=== PATIENT | female | born 1990 | race Caucasian/White ===

== ENCOUNTER 2017-01-29 08:11 | Emergency (ER) | payer SELFPAY ==
[2017-01-29 08:22] VITALS: BP 148/78
--- NOTE | 2017-01-29 08:28 | UC ---
Throat Pain/Nasal Chema HPI - HPI Summary HPI Summary: x2 days pt has had fever, chills, R ear pain. states her R ear is now completely plugged. Runny nose and minor sore throat. She is here with her kids and foster kids. Temp at home max 103 - temporal scanner. no cough, no wheezing. Denies , LMP 2 wks ago. Of note, [place] and sx started right after the field was cut. - History of Current Complaint Chief Complaint: UCGeneralIllness Stated Complaint: THROAT,EARS,FEVER Time Seen by Provider: 01/29/17 08:18 Hx Last Menstrual Period: 2 weeks ago - Allergies/Home Medications Allergies/Adverse Reactions: Allergies Allergy/AdvReac Type Severity Reaction Status Date / Time No Known Allergies Allergy Verified 01/29/17 08:22 PMH/Surg Hx/FS Hx/Imm Hx Previously Healthy: Yes - Surgical History Surgical History: Yes Surgery Procedure, Year, and Place: R ankle surgery, D&C - Family History Known Family History: Negative: Cardiac Disease, Diabetes - Social History Alcohol Use: None Substance Use Type: None Smoking Status (MU): Never Smoked Tobacco - Immunization History Most Recent Influenza Vaccination: has not had Review of Systems Constitutional: Fever - took ibuprofen 3 hrs ago Skin: Negative Eyes: Negative ENT: Sore Throat, Ear Ache, Nasal Discharge Respiratory: Negative Cardiovascular: Negative Gastrointestinal: Negative Genitourinary: Negative Motor: Negative Neurovascular: Negative Musculoskeletal: Negative Neurological: Negative Psychological: Negative All Other Systems Reviewed And Are Negative: Yes Physical Exam Triage Information Reviewed: Yes Appearance: Well-Appearing, No Pain Distress, Well-Nourished Vital Signs: Initial Vital Signs Temp 97.2 F 01/29/17 08:15 Pulse 95 01/29/17 08:15 Resp 18 01/29/17 08:15 BP 148/78 01/29/17 08:15 Pulse Ox 98 01/29/17 08:15 Vital Signs Reviewed: Yes Eye Exam: Normal ENT: Positive: Pharyngeal erythema - +PND, no exudate, Nasal drainage, TM bulging - Right, left TM is nml. Rt external ear is not tender with manipulation., TM dull, TM red Neck exam: Normal Neck: Positive: Supple, Nontender, No Lymphadenopathy Respiratory Exam: Normal Respiratory: Positive: Lungs clear, Normal breath sounds, No respiratory distress, No accessory muscle use Cardiovascular Exam: Normal Cardiovascular: Positive: RRR, No Murmur, Pulses Normal, Brisk Capillary Refill Abdominal Exam: Normal Abdomen Description: Positive: Nontender, Soft Musculoskeletal Exam: Normal Neurological Exam: Normal Psychological Exam: Normal Skin Exam: Normal Throat Pain/Nasal Course/Dx - Differential Dx/Diagnosis Differential Diagnosis/HQI/PQRI: Otitis Media, Pharyngitis, Sinusitis, URI Provider Diagnoses: Rt AOM, sinusitis Discharge - Discharge Plan Condition: Stable Disposition: HOME Prescriptions: Amoxicillin (*) [Amoxicillin 875 MG (*)] 875 mg PO BID #20 tab Fluticasone NASAL SPRAY 50MCG* [Flonase NASAL SPRAY 50MCG*] 2 spray BOTH NARES DAILY #1 btl Patient Education Materials: Sinusitis (ED), Otitis Media (ED) Referrals: LOKI Erickson [Medical Doctor] - Additional Instructions: Make sure to take a probiotic daily while on the antibiotic. Follow up with your PCP in 3-4 days. Fluids and rest. Can continue with ibuprofen and tylenol. Taking an otc allergy pill like cetirizine 10mgs each day can be helpful as well.
== END 2017-01-29 08:45 | disposition home or self-care (01) ==
LOC: UCCORT 08:11
DX: H66.91 Otitis media, unspecified, right ear (principal); J32.9 Chronic sinusitis, unspecified
CPT/HCPCS: 99201; G0463

== ENCOUNTER 2017-06-17 19:04 | Emergency (ER) | payer BC, MEDICAID ==
[2017-06-17 20:40] LABS: Hematocrit 35 % (35-47); Hemoglobin 11.9 g/dl (12.0-16.0); Mean Corpuscular HGB Conc 34 g/dl (31-36); Mean Corpuscular Hemoglobin 26 pg (27-31); Mean Corpuscular Volume 77 fL (80-97); Mean Platelet Volume 7 um3 (7.4-10.4); Red Blood Count 4.58 10^6/ul (4.0-5.4); Red Cell Distribution Width 15 % (10.5-15); White Blood Count 9.6 10^3/ul (3.5-10.8)
[2017-06-17 20:54] LABS: BUN/Creatinine Ratio 19.8 (8-20); Calcium 8.8 mg/dL (8.6-10.3); EGFR African American 101.8 (>60); EGFR Non-African American 79.2 (>60); Globulin 3.4 g/dL (2-4); Potassium 3.8 mmol/L (3.5-5.0); Total Bilirubin 0.2 mg/dL (0.2-1.0); Total Protein 7.4 g/dL (6.4-8.9)
[2017-06-17] MEDS ORDERED: Ketorolac INJ* 30 MG/ML 1 ML VIAL IV PUSH ONE (21:11)
[2017-06-17] MEDS ORDERED: Clindamycin 900 MG IVPREMIX(* 900 MG/50 ML SDV IV ONE (21:11)
--- NOTE | 2017-06-17 21:40 | ED ---
Throat Pain/Nasal Congestion - HPI Summary HPI Summary: 27F presents with right sided facial swelling for two weeks. She states she fractured tooth 21 a couple months ago. Two weeks ago she seemed to have an infection of that tooth. was placd on two rounds of clindamycin without relief. was told that needs to have tooth pulled but can not have pulled into until infection gone. [facility] sent in for IV antibiotics and steroid. she saw the oral surgeon today who said she has to much swelling to drain it today so needs to get swelling down. denies any fever. denies any chest pain or SOB. no trismus or hot potato voice. has been taking ibuprofen for pain with occasional percocet for pain. Has follow up with oral surgeon on Tuesday. <Divya Thacker - Last Filed: 06/17/17 23:49> <Shandra Munoz - Last Filed: 06/19/17 16:44> - History of Current Complaint Chief Complaint: EDDentalPain Time Seen by Provider: 06/17/17 20:12 - Allergies/Home Medications Allergies/Adverse Reactions: Allergies Allergy/AdvReac Type Severity Reaction Status Date / Time Schneider Allergy Severe Rash Verified 06/17/17 19:11 Methylphenidate Allergy Severe Shakes Verified 06/17/17 19:11 [From Ritalin] PMH/Surg Hx/FS Hx/Imm Hx Endocrine/Hematology History: Denies: Hx Anticoagulant Therapy Cardiovascular History: Denies: Hx Hypertension - Surgical History Surgery Procedure, Year, and Place: R ankle surgery, D&C - Immunization History Date of Tetanus Vaccine: UTD Infectious Disease History: No Infectious Disease History: Denies: Traveled Outside the [place] in Last 30 Days - Family History Known Family History: Negative: Cardiac Disease, Diabetes - Social History Alcohol Use: None Substance Use Type: Reports: None Smoking Status (MU): Never Smoked Tobacco <Divya Thacker - Last Filed: 06/17/17 23:49> Review of Systems Negative: Fever Positive: Dental Pain, Other - swelling left side of face Negative: Chest Pain Negative: Shortness Of Breath All Other Systems Reviewed And Are Negative: Yes <Divya Thacker - Last Filed: 06/17/17 23:49> Physical Exam Triage Information Reviewed: Yes Vital Signs On Initial Exam: Initial Vitals Temp Pulse Resp BP Pulse Ox 97.7 F 107 16 143/103 99 10/06/17 19:07 06/17/17 19:07 06/17/17 19:07 06/17/17 19:07 06/17/17 19:07 Vital Signs Reviewed: Yes Appearance: Positive: Well-Appearing Skin: Positive: Warm, Dry Head/Face: Positive: Normal Head/Face Inspection, Other - swelling right side of face Eyes: Positive: Normal, EOMI, PAUL, Conjunctiva Clear ENT: Positive: Pharynx normal, TMs normal - Елена Coma Scale Coma Scale Total: 15 <Divya Thacker - Last Filed: 06/17/17 23:49> Vital Signs On Initial Exam: Initial Vitals Temp Pulse Resp BP Pulse Ox 97.7 F 107 16 143/103 99 06/17/17 19:07 06/17/17 19:07 06/17/17 19:07 06/17/17 19:07 06/17/17 19:07 <Shandra Munoz - Last Filed: 06/19/17 16:44> Diagnostics - Vital Signs Vital Signs Temp Pulse Resp BP Pulse Ox 06/17/17 19:07 97.7 F 107 16 143/103 99 - Laboratory Lab Results: Lab Results 06/17/17 06/17/17 06/17/17 Range/Units 20:28 20:28 20:28 WBC 9.6 (3.5-10.8) 10^3/ul RBC 4.58 (4.0-5.4) 10^6/ul Hgb 11.9 L (12.0-16.0) g/dl Hct 35 (35-47) % MCV 77 L (80-97) fL MCH 26 L (27-31) pg MCHC 34 (31-36) g/dl RDW 15 (10.5-15) % Plt Count 328 (150-450) 10^3/ul MPV 7 L (7.4-10.4) um3 Neut % (Auto) 71.5 (38-83) % Lymph % (Auto) 19.9 L (25-47) % Mckean % (Auto) 6.9 (1-9) % Eos % (Auto) 1.4 (0-6) % Baso % (Auto) 0.3 (0-2) % Absolute Neuts (auto) 6.8 (1.5-7.7) 10^3/ul Absolute Lymphs (auto) 1.9 (1.0-4.8) 10^3/ul Absolute Monos (auto) 0.7 (0-0.8) 10^3/ul Absolute Eos (auto) 0.1 (0-0.6) 10^3/ul Absolute Basos (auto) 0 (0-0.2) 10^3/ul Absolute Nucleated RBC 0 10^3/ul Nucleated RBC % 0 Sodium 137 (133-145) mmol/L Potassium 3.8 (3.5-5.0) mmol/L Chloride 104 (101-111) mmol/L Carbon Dioxide 29 (22-32) mmol/L Anion Gap 4 (2-11) mmol/L BUN 17 (6-24) mg/dL Creatinine 0.86 (0.51-0.95) mg/dL Est GFR ( Amer) 101.8 (>60) Est GFR (Non-Af Amer) 79.2 (>60) BUN/Creatinine Ratio 19.8 (8-20) Glucose 124 H (70-100) mg/dL Lactic Acid 1.1 (0.5-2.0) mmol/L Calcium 8.8 (8.6-10.3) mg/dL Total Bilirubin 0.20 (0.2-1.0) mg/dL AST 17 (13-39) U/L ALT 16 (7-52) U/L Alkaline Phosphatase 90 (34-104) U/L Total Protein 7.4 (6.4-8.9) g/dL Albumin 4.0 (3.2-5.2) g/dL Globulin 3.4 (2-4) g/dL Albumin/Globulin Ratio 1.2 (1-3) Result Diagrams: 06/17/17 20:28 06/17/17 20:28 Lab Statement: Any lab studies that have been ordered have been reviewed, and results considered in the medical decision making process. - CT neck CT Interpretation: Positive (See Comments) - periapical luceny around left fourth mandibular tooth from midline. anterior mandibular cortex adjacent to this tooth is breached and adjacent soft tisseu swelling. this is likely a phlegmon which has not yet developed into abscess. phelgmon resctricted to left perimandibular soft tissue and remainder of soft tissues of face and neck ar normal. CT Interpretation Completed By: Radiologist <Divya Thacker - Last Filed: 06/17/17 23:49> - Vital Signs Vital Signs Temp Pulse Resp BP Pulse Ox 06/17/17 23:59 98.9 F 99 20 140/90 98 06/17/17 19:07 97.7 F 107 16 143/103 99 - Laboratory Lab Results: Lab Results 06/17/17 06/17/17 06/17/17 Range/Units 20:28 20:28 20:28 WBC 9.6 (3.5-10.8) 10^3/ul RBC 4.58 (4.0-5.4) 10^6/ul Hgb 11.9 L (12.0-16.0) g/dl Hct 35 (35-47) % MCV 77 L (80-97) fL MCH 26 L (27-31) pg MCHC 34 (31-36) g/dl RDW 15 (10.5-15) % Plt Count 328 (150-450) 10^3/ul MPV 7 L (7.4-10.4) um3 Neut % (Auto) 71.5 (38-83) % Lymph % (Auto) 19.9 L (25-47) % Mckean % (Auto) 6.9 (1-9) % Eos % (Auto) 1.4 (0-6) % Baso % (Auto) 0.3 (0-2) % Absolute Neuts (auto) 6.8 (1.5-7.7) 10^3/ul Absolute Lymphs (auto) 1.9 (1.0-4.8) 10^3/ul Absolute Monos (auto) 0.7 (0-0.8) 10^3/ul Absolute Eos (auto) 0.1 (0-0.6) 10^3/ul Absolute Basos (auto) 0 (0-0.2) 10^3/ul Absolute Nucleated RBC 0 10^3/ul Nucleated RBC % 0 Sodium 137 (133-145) mmol/L Potassium 3.8 (3.5-5.0) mmol/L Chloride 104 (101-111) mmol/L Carbon Dioxide 29 (22-32) mmol/L Anion Gap 4 (2-11) mmol/L BUN 17 (6-24) mg/dL Creatinine 0.86 (0.51-0.95) mg/dL Est GFR ( Amer) 101.8 (>60) Est GFR (Non-Af Amer) 79.2 (>60) BUN/Creatinine Ratio 19.8 (8-20) Glucose 124 H (70-100) mg/dL Lactic Acid 1.1 (0.5-2.0) mmol/L Calcium 8.8 (8.6-10.3) mg/dL Total Bilirubin 0.20 (0.2-1.0) mg/dL AST 17 (13-39) U/L ALT 16 (7-52) U/L Alkaline Phosphatase 90 (34-104) U/L Total Protein 7.4 (6.4-8.9) g/dL Albumin 4.0 (3.2-5.2) g/dL Globulin 3.4 (2-4) g/dL Albumin/Globulin Ratio 1.2 (1-3) Result Diagrams: 06/17/17 20:28 06/17/17 20:28 Lab Statement: Any lab studies that have been ordered have been reviewed, and results considered in the medical decision making process. <Shandra Munoz - Last Filed: 06/19/17 16:44> EENT Course/Dx - Course Course Of Treatment: 27F presents with right sided facial swelling for two weeks. She states she fractured tooth 21 a couple months ago. Two weeks ago she seemed to have an infection of that tooth. was placd on two rounds of clindamycin without relief. was told that needs to have tooth pulled but can not have pulled into until infection gone. [facility] sent in for IV antibiotics and steroid. she saw the oral surgeon today who said she has to much swelling to drain it today so needs to get swelling down. denies any fever. denies any chest pain or SOB. patient came with note from [facility] requesting iv antibiotics with potential steriod. on exam no trismus or hot potato voice. has tenderness tooth 21. hard loculated area on left side of face without flautance. labs normal. CT shows periapical abscess but soft tissue swelling does not appear to be infectious at this point. gave dose of clindamycin and patient states swelling in face as done down. discussed results with patient will add on steriod for swelling and add PCN for more coverage. patient has appropiate follow up at this time and nothing to be drainage at this time so hopefully additional antibiotic and steriod will decrease swelling so that way that tooth can be removed. told of signs to return to ED for. patient understands and agrees with plan. - Differential Diagnoses Differential Diagnoses: Dental Abscess, Fractured Tooth, Carmine's Angina <Divya Thacker - Last Filed: 06/17/17 23:49> <Shandra Munoz - Last Filed: 06/19/17 16:44> - Diagnoses Provider Diagnoses: Dental abscess Discharge <Divya Thacker - Last Filed: 06/17/17 23:49> <Shandra Munoz - Last Filed: 06/19/17 16:44> - Discharge Plan Condition: Good Disposition: HOME Prescriptions: Dexamethasone TAB* [Decadron TAB*] 4 mg PO DAILY #4 tab Ibuprofen TAB* [Motrin TAB* 800 MG] 800 mg PO Q6H #20 tab Penicillin VK TAB* [Penicillin VK 250 mg Tab*] 500 mg PO QID #27 tab Patient Education Materials: Dental Abscess (ED) Referrals: LOKI Erickson [Primary Care Provider] - Additional Instructions: Continue clindamycin Add on PCN four times a day for 7 days Take steroid once a day for 5 days Follow up with oral surgery as scheduled Return to ED if unable to manage secretions, unable to open jaw, or any new or worsening symptoms Attestation Statement User Type: Provider - I was available for consult. This patient was seen by the YAQUELIN. The patient was not presented to, seen by, or examined by me. -Janelle <Shandra Munoz - Last Filed: 06/19/17 16:44>
[2017-06-17] MEDS ORDERED: Iohexol 300* (CONTRAST) 10 ML SDV IV ONE (21:44)
[2017-06-17] MEDS ORDERED: Penicillin VK TAB* 250 MG PO ONE (23:12)
[2017-06-17] MEDS ORDERED: Dexamethasone TAB* 4 MG PO ONE (23:12)
[2017-06-18 00:01] VITALS: BP 140/90
--- NOTE | 2017-06-18 08:00 | RAD ---
HISTORY: Left-sided facial swelling COMPARISONS: None TECHNIQUE: Multiple contiguous axial CT scans were obtained of the neck after the administration of nonionic intravenous contrast, with coronal and sagittal multiplanar reformations. FINDINGS: BRAIN AND ORBITS: The visualized brain and orbits are normal. PARANASAL SINUSES: There are mucus retention cysts versus polyp with mucosal thickening of the maxillary sinuses bilaterally. SALIVARY GLANDS: The parotid glands, submandibular glands, sublingual glands are normal. NASAL CAVITY/NASOPHARYNX: The nasal cavity and nasopharynx are normal. ORAL CAVITY/OROPHARYNX: Evaluation limited by metallic streak artifact. There is carious disease with periapical is seen along the left lingular bicuspids. There is cortical breakthrough, with inflammatory change in the premandibular subcutaneous soft tissue. There is no appreciable loculated fluid collection. LARYNGEAL APPARATUS/HYPOPHARYNX: The laryngeal apparatus and hypopharynx are normal. UPPER AIRWAY/UPPER ESOPHAGUS: The visualized upper airway and esophagus are normal. LUNG APICES: The lung apices are clear. THYROID GLAND: The thyroid gland is normal. LYMPH NODES: There are prominent but nonpathologically enlarged lymph nodes of the upper cervical chain, greater on the left than on the right VASCULATURE: The vasculature is unremarkable. BONES AND SOFT TISSUES: No bone or soft tissue abnormalities are noted. OTHER: None. IMPRESSION: PERIAPICAL LUCENCY CONSISTENT WITH PERIAPICAL ABSCESS OF THE LEFT MANDIBULAR BICUSPIDS, WITH CORTICAL BREAKTHROUGH AND ASSOCIATED PHLEGMONOUS CHANGE OF THE PREMANDIBULAR SUBCUTANEOUS SOFT TISSUE. THERE IS NO LOCULATED FLUID COLLECTION TO SUGGEST ABSCESS
== END 2017-06-18 00:01 | disposition home or self-care (01) ==
LOC: ED 19:04
DX: K08.89 Other specified disorders of teeth and supporting structures (principal); K04.7 Periapical abscess without sinus
CPT/HCPCS: 36415; 70491; 80053; 83605; 85025; 96365; 96374; 99282; A9270-GY; J1885; J8540; Q9967

== ENCOUNTER → 2017-11-23 12:34 | Emergency (ER) | payer OTHER ==
[~2017-11-23 12:34] MED LIST: Acetaminophen TAB* 325 MG PO ONE; GuaiFENesin DM* 5 ML UDC PO ONE; NS 0.9% 1000 ML* 1,000 ML IV ONE; Oseltamivir CAP* 75 MG CAP PO ONE; Oseltamivir SUSP 75 MG dose* 75 MG/12.5 ML ORAL.SYRIN PO SCH
--- NOTE | 2017-11-23 16:01 | RAD ---
Indication: Shortness of breath, cough, fever. Chest pain. Flu symptoms. Comparison: No relevant prior exams available on the [facility] [place] for comparison. Technique: Upright AP and lateral chest views. Report: Morbid obesity limits image quality. No compelling alveolar consolidation, pleural effusion, or pneumothorax. Accounting for AP technique and suboptimal inspiration the heart appears top normal in size. Unremarkable central pulmonary vasculature and mediastinal contours. No gross abnormality of the osseous structures. IMPRESSION: No compelling evidence for pneumonia. Top normal heart size.
[2017-11-23 16:09] LABS: ABS Basophils 0 10^3/ul (0-0.2); ABS Eosinophils 0 10^3/ul (0-0.6); ABS Lymphocytes 0.6 10^3/ul (1.0-4.8); ABS Monocytes 0.4 10^3/ul (0-0.8); ABS Neutrophils 3.6 10^3/ul (1.5-7.7); ABS Nucleated RBC 0 10^3/ul; Eosinophil % 0.3 % (0-6); Hematocrit 35 % (35-47); Hemoglobin 11.5 g/dl (12.0-16.0); Lymphocyte % 13.1 % (25-47); Mean Corpuscular HGB Conc 33 g/dl (31-36); Mean Corpuscular Hemoglobin 25 pg (27-31); Mean Corpuscular Volume 77 fL (80-97); Mean Platelet Volume 7 um3 (7.4-10.4); Nucleated Red Blood Cells % 0; Platelet Count 247 10^3/ul (150-450); Red Blood Count 4.52 10^6/ul (4.0-5.4); Red Cell Distribution Width 17 % (10.5-15); White Blood Count 4.6 10^3/ul (3.5-10.8)
[2017-11-23 16:32] LABS: EGFR Non-African American 107.4 (>60)
[2017-11-23 17:17] LABS: Urine Appearance Clear; Urine Blood 2+ (Negative); Urine Color Yellow; Urine Ketones Negative (Negative); Urine Protein Negative (Negative); Urine Specific Gravity 1.017 (1.010-1.030); Urine Urobilinogen Negative (Negative)
[2017-11-23 17:34] VITALS: BP 121/84
--- NOTE | 2017-11-25 08:09 | ED ---
Hitesh Chaves Angela, scribed for Mandeep Farias MD on 11/23/17 at 1455 . Respiratory - HPI Summary HPI Summary: This pt is a 27 y/o female [facility]/o cough and SOB. Pt reports that 3 days ago she had a fever of 102F. She states her fever than resolved. She additionally notes chills, body aches, sore throat. She notes she gets SOB when coughing. Pt reports chest pain secondary to cough. Denies any PMHx. - History of Current Complaint Chief Complaint: EDShortnessOfBreath Stated Complaint: FLU LIKE SYMPTOMS Time Seen by Provider: 11/23/17 14:30 Hx Obtained From: Patient Onset/Duration: Lasting Days, Still Present Timing: Constant Current Severity: Mild Pain Intensity: 2 Character: Cough (Productive) Aggravating Factor(s): Nothing Alleviating Factor(s): Nothing Associated Signs and Symptoms: Fever, SOB, Chest Pain with Cough, Chills, Nasal Congestion - Allergy/Home Medications Allergies/Adverse Reactions: Allergies Allergy/AdvReac Type Severity Reaction Status Date / Time MS Sulligent [Sulligent] Allergy Severe Rash Verified 11/23/17 12:42 MS Methylphenidate Allergy Severe Shakes Verified 11/23/17 12:42 [From Ritalin] PMH/Surg Hx/FS Hx/Imm Hx Endocrine/Hematology History: Denies: Hx Anticoagulant Therapy, Hx Diabetes Cardiovascular History: Denies: Hx Hypertension History: Denies: Hx Renal Disease - Surgical History Surgery Procedure, Year, and Place: R ankle surgery, D&C - Immunization History Date of Tetanus Vaccine: UTD Infectious Disease History: No Infectious Disease History: Denies: Traveled Outside the [place] in Last 30 Days - Family History Known Family History: Negative: Cardiac Disease, Diabetes - Social History Alcohol Use: None Substance Use Type: Reports: None Smoking Status (MU): Never Smoked Tobacco Review of Systems Positive: Fever, Chills Positive: Sore Throat Positive: Chest Pain - secondary to cough Positive: Shortness Of Breath, Cough Positive: Myalgia All Other Systems Reviewed And Are Negative: Yes Physical Exam - Summary Physical Exam Summary: VITAL SIGNS: Reviewed. GENERAL: Patient is an obese female who is lying comfortable in the stretcher. Patient is not in any acute respiratory distress. HEAD AND FACE: No signs of trauma. No ecchymosis, hematomas or skull depressions. No sinus tenderness. Positive for runny nose. EYES: PERRLA, EOMI x 2, No injected conjunctiva, no nystagmus. EARS: Hearing grossly intact. Ear canals and tympanic membranes are within normal limits. MOUTH: Oropharynx within normal limits. NECK: Supple, trachea is midline, no adenopathy, no JVD, no carotid bruit, no c- spine tenderness, neck with full ROM. CHEST: Symmetric, no tenderness at palpation LUNGS: Crackles in both bases of the lungs. CVS: Regular rate and rhythm, S1 and S2 present, no murmurs or gallops appreciated. ABDOMEN: Soft, non-tender. No signs of distention. No rebound no guarding, and no masses palpated. Bowel sounds are normal. EXTREMITIES: FROM in all major joints, no edema, no cyanosis or clubbing. NEURO: Alert and oriented x 3. No acute neurological deficits. Speech is normal and follows commands. SKIN: Dry and warm. Pt is febrile. Triage Information Reviewed: Yes Vital Signs On Initial Exam: Initial Vitals Temp Pulse Resp BP Pulse Ox 97.8 F 108 20 161/83 99 11/23/17 12:37 11/23/17 12:37 11/23/17 12:37 11/23/17 12:37 11/23/17 12:37 Vital Signs Reviewed: Yes Diagnostics - Vital Signs Vital Signs Temp Pulse Resp BP Pulse Ox 11/23/17 12:37 97.8 F 108 20 161/83 99 - Laboratory Lab Results: Lab Results 11/23/17 11/23/17 11/23/17 Range/Units 14:55 15:45 15:45 WBC 4.6 (3.5-10.8) 10^3/ul RBC 4.52 (4.0-5.4) 10^6/ul Hgb 11.5 L (12.0-16.0) g/dl Hct 35 (35-47) % MCV 77 L (80-97) fL MCH 25 L (27-31) pg MCHC 33 (31-36) g/dl RDW 17 H (10.5-15) % Plt Count 247 (150-450) 10^3/ul MPV 7 L (7.4-10.4) um3 Neut % (Auto) 76.6 (38-83) % Lymph % (Auto) 13.1 L (25-47) % Webb % (Auto) 9.6 H (0-7) % Eos % (Auto) 0.3 (0-6) % Baso % (Auto) 0.4 (0-2) % Absolute Neuts (auto) 3.6 (1.5-7.7) 10^3/ul Absolute Lymphs (auto) 0.6 L (1.0-4.8) 10^3/ul Absolute Monos (auto) 0.4 (0-0.8) 10^3/ul Absolute Eos (auto) 0 (0-0.6) 10^3/ul Absolute Basos (auto) 0 (0-0.2) 10^3/ul Absolute Nucleated RBC 0 10^3/ul Nucleated RBC % 0 Sodium 135 (133-145) mmol/L Potassium 3.8 (3.5-5.0) mmol/L Chloride 104 (101-111) mmol/L Carbon Dioxide 27 (22-32) mmol/L Anion Gap 4 (2-11) mmol/L BUN 10 (6-24) mg/dL Creatinine 0.66 (0.51-0.95) mg/dL Est GFR ( Amer) 138.2 (>60) Est GFR (Non-Af Amer) 107.4 (>60) BUN/Creatinine Ratio 15.2 (8-20) Glucose 101 H (70-100) mg/dL Calcium 8.9 (8.6-10.3) mg/dL Total Bilirubin 0.20 (0.2-1.0) mg/dL AST 17 (13-39) U/L ALT 13 (7-52) U/L Alkaline Phosphatase 65 (34-104) U/L Troponin I 0.00 (<0.04) ng/mL C-Reactive Protein 49.34 H (< 5.00) mg/L Total Protein 7.0 (6.4-8.9) g/dL Albumin 3.7 (3.2-5.2) g/dL Globulin 3.3 (2-4) g/dL Albumin/Globulin Ratio 1.1 (1-3) Beta HCG, Quant < 0.60 mIU/mL Urine Color Urine Appearance Urine pH (5-9) Ur Specific Gardiner (1.010-1.030) Urine Protein (Negative) Urine Ketones (Negative) Urine Blood (Negative) Urine Nitrate (Negative) Urine Bilirubin (Negative) Urine Urobilinogen (Negative) Ur Leukocyte Esterase (Negative) Urine WBC (Auto) (Absent) Urine RBC (Auto) (Absent) Ur Squamous Epith Cells (Absent) Urine Bacteria (Absent) Hyaline Casts (Absent) Urine Glucose (Negative) Influenza A (Rapid) Negative (Negative) Influenza B (Rapid) Positive A (Negative) 11/23/17 Range/Units 17:00 WBC (3.5-10.8) 10^3/ul RBC (4.0-5.4) 10^6/ul Hgb (12.0-16.0) g/dl Hct (35-47) % MCV (80-97) fL MCH (27-31) pg MCHC (31-36) g/dl RDW (10.5-15) % Plt Count (150-450) 10^3/ul MPV (7.4-10.4) um3 Neut % (Auto) (38-83) % Lymph % (Auto) (25-47) % Webb % (Auto) (0-7) % Eos % (Auto) (0-6) % Baso % (Auto) (0-2) % Absolute Neuts (auto) (1.5-7.7) 10^3/ul Absolute Lymphs (auto) (1.0-4.8) 10^3/ul Absolute Monos (auto) (0-0.8) 10^3/ul Absolute Eos (auto) (0-0.6) 10^3/ul Absolute Basos (auto) (0-0.2) 10^3/ul Absolute Nucleated RBC 10^3/ul Nucleated RBC % Sodium (133-145) mmol/L Potassium (3.5-5.0) mmol/L Chloride (101-111) mmol/L Carbon Dioxide (22-32) mmol/L Anion Gap (2-11) mmol/L BUN (6-24) mg/dL Creatinine (0.51-0.95) mg/dL Est GFR ( Amer) (>60) Est GFR (Non-Af Amer) (>60) BUN/Creatinine Ratio (8-20) Glucose (70-100) mg/dL Calcium (8.6-10.3) mg/dL Total Bilirubin (0.2-1.0) mg/dL AST (13-39) U/L ALT (7-52) U/L Alkaline Phosphatase (34-104) U/L Troponin I (<0.04) ng/mL C-Reactive Protein (< 5.00) mg/L Total Protein (6.4-8.9) g/dL Albumin (3.2-5.2) g/dL Globulin (2-4) g/dL Albumin/Globulin Ratio (1-3) Beta HCG, Quant mIU/mL Urine Color Yellow Urine Appearance Clear Urine pH 6.0 (5-9) Ur Specific Gardiner 1.017 (1.010-1.030) Urine Protein Negative (Negative) Urine Ketones Negative (Negative) Urine Blood 2+ A (Negative) Urine Nitrate Negative (Negative) Urine Bilirubin Negative (Negative) Urine Urobilinogen Negative (Negative) Ur Leukocyte Esterase Negative (Negative) Urine WBC (Auto) Trace(0-5/hpf) (Absent) Urine RBC (Auto) Trace(0-2/hpf) (Absent) Ur Squamous Epith Cells Present A (Absent) Urine Bacteria Absent (Absent) Hyaline Casts Present A (Absent) Urine Glucose Negative (Negative) Influenza A (Rapid) (Negative) Influenza B (Rapid) (Negative) Result Diagrams: 11/23/17 15:45 11/23/17 15:45 Lab Statement: Any lab studies that have been ordered have been reviewed, and results considered in the medical decision making process. - Radiology Chest XR Xray Interpretation: No Acute Changes - IMPRESSION: No compelling evidence for pneumonia. Top normal heart size. Dr. Farias has reviewed this radiology report. Radiology Interpretation Completed By: Radiologist - EKG 14:59 Cardiac Rate: Tachycardia EKG Rhythm: Sinus Tachycardia - at 109 bpm EKG Interpretation: No ST elevations. Re-Evaluation - Re-Evaluation First Eval Re-Evaluation Time: 17:25 Comment: I reviewed the lab and XR results with the pt. She will be discharged. Disposition - Course Assessment/Plan: This pt is a 27 y/o female presenting to [facility] c/o cough and SOB. Pt reports that 3 days ago she had a fever of 102F. She states her fever than resolved. She additionally notes chills, body aches, sore throat. She notes she gets SOB when coughing. Pt reports chest pain secondary to cough. Denies any PMHx. Test results without any significant abnormalities except for CRP of 49.34. Influenza A is negative. Influenza B is positive. Chest XR: No compelling evidence for pneumonia. Top normal heart size. In the ED course the pt was given IV fluids, Robitussin, Tamiflu, and Tylenol. Pt was discharged to home with follow up from her PCP. She was given a prescription for Tamiflu for the flu. I discussed all the findings and test results with the patient. Patient was instructed to return to the emergency room immediately if any of the symptoms return or worsens. Plan of care was discussed with the patient and understands and agrees. All questions were answered at patient satisfaction. There were no further complaints or concerns. She is instructed to return to the ED for any worsening or new symptoms. Pt is hemodynamically stable, alert and oriented x3. - Diagnoses Provider Diagnoses: Influenza B Discharge - Discharge Plan Condition: Stable Disposition: HOME Prescriptions: Oseltamivir CAP* [Tamiflu CAP*] 75 mg PO BID #10 cap Patient Education Materials: Influenza (ED) Referrals: LOKI Jose [Primary Care Provider] - Additional Instructions: Please follow up with your primary care provider. RETURN TO THE ED FOR ANY WORSENING SYMPTOMS. The documentation as recorded by the Hitesh donovan Angela accurately reflects the service I personally performed and the decisions made by me, Mandeep Farias MD.
== END | disposition home or self-care (01) ==
LOC: ED 12:34
DX: J10.1 Influenza due to other identified influenza virus with other respiratory manifestations (principal); R50.9 Fever, unspecified; R06.02 Shortness of breath; R07.9 Chest pain, unspecified; R09.81 Nasal congestion; J02.9 Acute pharyngitis, unspecified
CPT/HCPCS: 36415; 71046; 80053; 81003; 81015; 84484; 84702; 85025; 86140; 87086; 87502; 93005; 99283; A9270-GY

== ENCOUNTER 2018-01-01 11:09 | Emergency (ER) | payer OTHER ==
[2018-01-01 12:13] VITALS: BP 141/95
--- NOTE | 2018-01-01 12:52 | UC ---
Throat Pain/Nasal Chema HPI - HPI Summary HPI Summary: C/O sore throat with neck swelling since yesterday. Exposed to strep. Recent influenza. Has had body aches. - History of Current Complaint Stated Complaint: FEVER*2DAYS/ST Time Seen by Provider: 01/01/18 12:05 Hx Obtained From: Patient Hx Last Menstrual Period: 12/12/17 Onset/Duration: Sudden Onset, Lasting Days - 1, Worse Since - today Severity: Moderate Pain Intensity: 6 Cough: None Associated Signs & Symptoms: Positive: Dysphagia, Fever - Allergies/Home Medications Allergies/Adverse Reactions: Allergies Allergy/AdvReac Type Severity Reaction Status Date / Time lithium Allergy Rash Verified 01/01/18 12:14 methylphenidate Allergy Shakes Verified 01/01/18 12:14 Home Medications: Home Medications Ibuprofen TAB* [Motrin TAB* 800 MG] 600 mg PO Q6H 01/01/18 [History Confirmed ] PMH/Surg Hx/FS Hx/Imm Hx Other Endocrine History: Pre-diabetes Other History Of: Negative For: Anticoagulant Therapy - Surgical History Surgical History: Yes Surgery Procedure, Year, and Place: R ankle surgery, D&C - Family History Known Family History: Positive: Hypertension Negative: Cardiac Disease, Diabetes - Social History Occupation: Works From/At Home Lives: With Family Alcohol Use: None Substance Use Type: None Smoking Status (MU): Never Smoked Tobacco Have You Smoked in the Last Year: No - Immunization History Most Recent Influenza Vaccination: has not had Review of Systems Constitutional: Fever ENT: Sore Throat Respiratory: Shortness Of Breath Musculoskeletal: Myalgia Is Patient Immunocompromised?: No All Other Systems Reviewed And Are Negative: Yes Physical Exam Triage Information Reviewed: Yes Appearance: No Pain Distress, Ill-Appearing, Obese Vital Signs: Initial Vital Signs Temp 99.1 F 01/01/18 12:03 Pulse 108 01/01/18 12:03 Resp 22 01/01/18 12:03 BP 141/95 01/01/18 12:03 Pulse Ox 100 01/01/18 12:03 Vital Signs Reviewed: Yes Eyes: Positive: Conjunctiva Clear ENT: Positive: Pharyngeal erythema, TMs normal Neck: Positive: Tenderness @ - Bilateral anterior LA, Enlarged Nodes @ - Bilateral anterior LA Respiratory: Positive: Lungs clear, Wheezing - expiratory just with coughing Cardiovascular Exam: Normal Musculoskeletal Exam: Normal Musculoskeletal: Positive: Other: - tenderness right paraspinal muscles in the lumbar region. Neurological Exam: Normal Psychological Exam: Normal Skin Exam: Normal Throat Pain/Nasal Course/Dx - Differential Dx/Diagnosis Differential Diagnosis/HQI/PQRI: Laryngitis, Pharyngitis, Sinusitis, URI Provider Diagnoses: Acute strep pharyngitis. Acute bronchospasm. Low back pain Discharge - Sign-Out/Discharge Documenting (check all that apply): Discharge - Discharge Plan Condition: Stable Disposition: HOME Prescriptions: Amoxicillin PO (*) [Amoxicillin 875 MG (*)] 875 mg PO BID #20 tab predniSONE TAB* [Deltasone TAB*] 20 mg PO DAILY #18 tab Patient Education Materials: Strep Throat (ED), Amoxicillin (By mouth), Bronchospasm (ED), Prednisone (By mouth) Referrals: LOKI Erickson [Primary Care Provider] - Additional Instructions: Yoga can be very helpful for low back pain. Search "beginning yoga for back pain " on Youtube and do that at home. - Billing Disposition and Condition Condition: STABLE Disposition: HOME
== END 2018-01-01 13:19 | disposition home or self-care (01) ==
LOC: UCCORT 11:09
DX: J02.0 Streptococcal pharyngitis (principal); J98.01 Acute bronchospasm; M54.5 Low back pain; R50.9 Fever, unspecified; Z88.8 Allergy status to other drugs, medicaments and biological substances
CPT/HCPCS: 81003; 87086; 87502; 87651; 99212; G0463

== ENCOUNTER 2019-05-22 14:44 | Emergency (ER) | payer BC ==
[2019-05-22 15:06] VITALS: BP 155/91
--- NOTE | 2019-05-22 15:16 | UC ---
Complaint Female HPI - HPI Summary HPI Summary: 29 yo with history of vulvitis several weeks ago, self treated with topicals. She itches herself raw at times, and symptoms have increased again. Scant discharge, not concerned about STI's, in a stable relationship. Hx of impaired glucose tolerant but not diabetic--keeps track of her a1c's. Very careful with hygiene/wiping, and has had no success with 1% HC cream or use of barrier ointments. - History Of Current Complaint Chief Complaint: UCGU Stated Complaint: PERSONAL Time Seen by Provider: 05/22/19 15:08 Hx Obtained From: Patient Hx Last Menstrual Period: 04/21/19 Onset/Duration: Gradual Onset, Lasting Days Timing: Constant Severity Initially: Mild Severity Currently: Moderate Pain Intensity: 0 Character: Not Applicable Aggravating Factor(s): Urination Associated Signs And Symptoms: Positive: Vaginal Discharge Related Hx: - 2, Para - 2 - Allergies/Home Medications Allergies/Adverse Reactions: Allergies Allergy/AdvReac Type Severity Reaction Status Date / Time lithium Allergy Rash Verified 05/22/19 15:07 methylphenidate Allergy Shakes Verified 05/22/19 15:07 Home Medications: Home Medications Benzocaine/Resorcin/Aloe/E,A,D [Vagisil Cream] 1 applic TOPICAL DAILY 05/22/19 [ History Confirmed 05/22/19] PMH/Surg Hx/FS Hx/Imm Hx Previously Healthy: Yes - obesity Endocrine History: Other - impaired glucose tolerance. Respiratory History: Pulmonary Embolism - in Other History Of: Negative For: Anticoagulant Therapy - Surgical History Surgical History: Yes Surgery Procedure, Year, and Place: R ankle surgery, D&C - Family History Known Family History: Positive: Hypertension Negative: Cardiac Disease, Diabetes - Social History Occupation: Employed Full-time - [employer] Lives: With Family Alcohol Use: None Substance Use Type: None Smoking Status (MU): Never Smoked Tobacco Have You Smoked in the Last Year: No - Immunization History Most Recent Influenza Vaccination: has not had Review of Systems All Other Systems Reviewed And Are Negative: Yes Constitutional: Positive: Negative Skin: Positive: Negative Eyes: Positive: Negative ENT: Positive: Negative Respiratory: Positive: Negative Cardiovascular: Positive: Negative Gastrointestinal: Positive: Negative. Negative: Diarrhea Genitourinary: Positive: Vaginal/Penile Itching. Negative: Dysuria, Hematuria, Frequency, Urgency Motor: Positive: Negative Neurovascular: Positive: Negative Musculoskeletal: Positive: Negative Neurological: Positive: Negative Psychological: Positive: Anxious Is Patient Immunocompromised?: No Physical Exam Triage Information Reviewed: Yes Appearance: Well-Appearing, No Pain Distress, Obese Vital Signs: Initial Vital Signs Temp 97.8 F 05/22/19 15:00 Pulse 88 05/22/19 15:00 Resp 16 05/22/19 15:00 BP 155/91 05/22/19 15:00 Pulse Ox 100 05/22/19 15:00 ENT: Positive: Pharynx normal Respiratory: Positive: Lungs clear, Normal breath sounds Cardiovascular: Positive: RRR, No Murmur Abdomen Description: Negative: CVA Tenderness (R), CVA Tenderness (L) Pelvic Exam: Positive: Other - inner labia with erythema, scant discharge. Mild erythemia of the outer labia and perianal area without excoriations or skin maceration. Musculoskeletal Exam: Normal Neurological: Positive: Muscle Tone Normal Psychological Exam: Other - mild anxiety Skin Exam: Normal Complaint Female Dx - Course Course Of Treatment: fluconazole for treatment of likely candidal perineal infection. Affirm sent, discussed hygiene and air drying. - Differential Dx/Diagnosis Differential Diagnosis/HQI/PQRI: Sexually Transmitted Disease, Urinary Tract Infection, Other - vaginitis/vulvitis. Provider Diagnosis: Vulvitis Discharge ED - Sign-Out/Discharge Documenting (check all that apply): Patient Departure All imaging exams completed and their final reports reviewed: No Studies - Discharge Plan Condition: Stable Disposition: HOME Prescriptions: Fluconazole 100 MG TAB* [Diflucan 100 MG TAB*] 100 mg PO DAILY #5 tab Patient Education Materials: Vaginitis (ED) Referrals: Chaim Simmons MD [Primary Care Provider] - Additional Instructions: A swab to confirm the presence of yeast has been sent, and you will be called if a change in treament is necessary. Use fluconazole 100mg daily for suspected yeast. Continue regular cleansing, air dry with a communications department chairperson on low. You might consider a powder such as Gold Dhillon to keep the perineal area dry. Follow up with your primary doctor if symptoms persist. - Billing Disposition and Condition Condition: STABLE Disposition: Home
--- NOTE | 2019-05-24 07:32 | ED ---
Progress - Progress Note Progress Note: please call the patient. A prescription for flagyl sent for BV. Please inform she should use no alcohol for the next ten days. Course/Dx - Diagnoses Provider Diagnoses: Vulvitis Discharge ED - Sign-Out/Discharge Documenting (check all that apply): Patient Departure All imaging exams completed and their final reports reviewed: No Studies - Discharge Plan Condition: Stable Disposition: HOME Prescriptions: Fluconazole 100 MG TAB* [Diflucan 100 MG TAB*] 100 mg PO DAILY #5 tab metroNIDAZOLE [Flagyl 500 MG TAB] 500 mg PO BID #14 tab Patient Education Materials: Vaginitis (ED) Referrals: Chaim Simmons MD [Primary Care Provider] - Additional Instructions: A swab to confirm the presence of yeast has been sent, and you will be called if a change in treament is necessary. Use fluconazole 100mg daily for suspected yeast. Continue regular cleansing, air dry with a business department chair on low. You might consider a powder such as Gold Dhillon to keep the perineal area dry. Follow up with your primary doctor if symptoms persist. - Billing Disposition and Condition Condition: STABLE Disposition: Home
== END 2019-05-22 15:45 | disposition home or self-care (01) ==
LOC: UCCORT 14:44
DX: N76.2 Acute vulvitis (principal); Z88.8 Allergy status to other drugs, medicaments and biological substances
CPT/HCPCS: 87480; 87510; 99212; G0463

== ENCOUNTER 2019-08-26 10:11 | Emergency (ER) | payer SELFPAY ==
--- OUTSIDE RECORDS SUMMARY | 2019-08-26 10:17 | XMS REPORT | Summary of Care ---
:1990 Author Organization [facility] Address [address] [address] Care Team Providers Name Role Phone None, [place] Unavailable Unavailable Casandra Lange Primary Care Provider Reason for Referral Refer to Department Only (Routine) Status Reason Specialty Diagnoses / Referred By Referred To Procedures Contact Contact Pending Review Physical Therapy Diagnoses Pain in finger of left hand Shirley Rodas PA-C Orthopaedics - [address] [place] [address] [address] Therapy [place], [place] [address] [address] [address] Phone: [place], [place] [phone] Fax: Reason for Visit Reason Comments New Patient pt states left index finger has been 2 weeks. no injury. hard to grasp things Encounter Details Date Type Department Care Team Description 08/21/2019 Office Visit [place] Marci Rodas Pain in finger of left Practice [facility] (Primary Dx) [address] [place] [address] [phone] Allergies Active Allergy Reactions Severity Noted Date Comments [place] Rash High 08/09/2018 Fd&C Yellow #10-Methylphenidate Other 08/09/2018 twitching documented as of this encounter (statuses as of 08/21/2019) Medications Medication Sig Dispensed Refills Start Date End Date Status metFORMIN (GLUCOPHAGE) TK 1 T PO D 3 01/23/2019 Active 500 MG Oral TabIndications: Menstrual periods irregular naproxen (NAPROSYN) 500 TK 1 T PO BID WF 0 01/19/2019 Active MG Oral TabIndications: Menstrual periods irregular documented as of this encounter (statuses as of 08/21/2019) Active Problems Problem Noted Date Menstrual periods irregular 02/09/2019 Overview: Infrequent and heavy menses, trying to conceive Uterine polyp 09/21/2018 Menorrhagia 09/21/2018 PTSD (post-traumatic stress disorder) 09/21/2018 PCOS (polycystic ovarian syndrome) 09/21/2018 Overview: Labs are negative for PCOS; US is non diagnostic but small exophytic cyst bilaterally with recommendation for repeat scan in 6-10 weeks. Encounter for PPD skin test reading 08/11/2018 Deep venous thrombosis 02/07/2018 Morbid obesity 02/07/2018 Pulmonary embolism 02/07/2018 documented as of this encounter (statuses as of 08/21/2019) Resolved Problems Problem Noted Date Resolved Date Urinary tract infection 09/09/2016 08/09/2018 documented as of this encounter (statuses as of 08/21/2019) Immunizations Name Administration Dates Next Due Tuberculin Skin Test 09/13/2018 documented as of this encounter Social History Tobacco Use Types Packs/Day Years Used Date Never Smoker Smokeless Tobacco: Never Used Alcohol Use Drinks/Week oz/Week Comments No Sex Assigned at Date Recorded Not on file Job Start Date Occupation Industry Not on file Not on file Not on file Travel History Travel Start Travel End No recent travel history available. documented as of this encounter Last Filed Vital Signs Vital Sign Reading Time Taken Comments Blood Pressure 124/82 08/21/2019 8:23 AM EST Pulse 80 08/21/2019 8:23 AM EST Temperature 36.7 08/21/2019 8:23 AM EST C (98.1 F) Respiratory Rate - - Oxygen Saturation 98% 08/21/2019 8:23 AM EST Inhaled Oxygen Concentration - - Weight 145.2 kg (320 lb) 08/21/2019 8:23 AM EST Height 161.3 cm (5' 3.5") 08/21/2019 8:23 AM EST Body Mass Index 55.8 08/21/2019 8:23 AM EST documented in this encounter Patient Instructions Patient InstructionsMarci Rodas PA-C - 08/21/2019 8:20 AM ESTOrdered xray -- will do now -- will call with results Did referral to physical therapy -- patient can call for appointment Apply heat, OTC Ibuprofen 400mg as needed, take with food Make appointment to establish with PCP documented in this encounter Progress Notes Marci Rodas PA-C - 08/21/2019 8:20 AM EST PATIENT: Stephanie Munoz : 1990 DATE OF SERVICE: 08/21/2019 REFERRING PRACTITIONER: Self-Referred PRIMARY CARE PROVIDER: Casandra Lange NEW PATIENT TO THIS OFFICE -- will be establishing here CHIEF COMPLAINT: Chief Complaint Patient presents with New Patient pt states left index finger has been 2 weeks. no injury. hard to grasp things Subjective HISTORY OF PRESENT ILLNESS: Stephanie Munoz is a 29-y.o. female who presents with left index finger stiffness x 2 months Has been worse the past 2 weeks Says she is having trouble grasping with finger, tying bows, laces Denies recent injury or strenuous activity Says OTC Ibuprofen gives some relief, but does not like to take pills Denies fever, chills, nausea, vomiting, diarrhea, chest pains, SOB Past Medical History: Diagnosis Date Anticoagulated by anticoagulation treatment Required blood thinner during Colitis DVT (deep venous thrombosis) (HCC) Kidney infection Obesity Past Surgical History: Procedure Laterality Date [place] REPAIR BOTH COLLAT ANKL LIGMT,PRIMRY Family History Problem Relation Age of Onset Arthritis-Rheumatoid Maternal Grandmother Thyroid Sister Current Outpatient Medications Medication Sig metFORMIN (GLUCOPHAGE) 500 MG Oral Tab TK 1 T PO D naproxen (NAPROSYN) 500 MG Oral Tab TK 1 T PO BID WF No current facility-administered medications for this visit. Allergies Allergen Reactions [place] Rash Ritalin [Fd&C Yellow #10-Methylphenidate] Other twitching Social History Socioeconomic History Marital status: Spouse name: Not on file Number of children: Not on file Years of education: Not on file Highest education level: Not on file Occupational History Not on file Social Needs Financial resource strain: Not on file Food insecurity: Worry: Not on file Inability: Not on file Transportation needs: Medical: Not on file Non-medical: Not on file Tobacco Use Smoking status: Never Smoker Smokeless tobacco: Never Used Substance and Sexual Activity Alcohol use: No Drug use: No Sexual activity: Yes Partners: Male control/protection: Condom Lifestyle Physical activity: Days per week: Not on file Minutes per session: Not on file Stress: Not on file Relationships Social connections: Talks on phone: Not on file Gets together: Not on file Attends zoroastrian service: Not on file Active member of club or organization: Not on file Attends meetings of clubs or organizations: Not on file Relationship status: Not on file Intimate partner violence: Fear of current or ex partner: Not on file Emotionally abused: Not on file Physically abused: Not on file Forced sexual activity: Not on file Other Topics Concern Back Care Not Asked Bike Helmet Not Asked Blood Transfusions Not Asked Caffeine Concern Not Asked Exercise Not Asked Hobby Hazards Not Asked International Travel Not Asked Service Not Asked Occupational Exposure Not Asked Seat Belt Not Asked Self-Exams Not Asked Sleep Concern Not Asked Special Diet Not Asked Stress Concern Not Asked Weight Concern Not Asked Social History Narrative Not on file REVIEW OF SYSTEMS: Skin: negative skin lesions Eyes: negative visual blurring Ears/Nose/Throat: negative rhinorrhea or sore throat Respiratory: negative cough Cardiovascular: negative chest pain Gastrointestinal: negative abdominal pain, constipation, diarrhea, nausea or vomiting Genitourinary: negative burning on urination, dysuria or vaginal discharge Musculoskeletal: positive left index finger pain/stiffness -- see hpi Neurologic: negative numbness or tingling of feet or hands Psychiatric: negative anxiety. Positive PTSD Hematologic/Lymphatic/Immunologic: negative allergies Endocrine: negative diabetes or hot flashes/sweats. Positive PCOS Objective PHYSICAL EXAMINATION: VITALS: BP 124/82 (BP Location: Left arm, Patient Position: Sitting) | Pulse 80 | Temp 98.1 F(36.7 C) | Ht 5' 3.5" (1.613 m) | Wt 320 lb (145.2 kg ) | SpO2 98% | BMI 55.80 kg/m Bodymass index is 55.8 kg/m. General appearance - alert, moderate distress, cooperative, oriented times 3, morbidly obese Skin - Skin color, texture, turgor normal. No rashes or lesions. Head - Normocephalic. No masses, lesions, tenderness or abnormalities Eyes - conjunctivae/corneas clear. PERRL, EOM's intact. Neck - Neck supple, FROM. No cervical or supraclavicularadenopathy. Left index finger - no edema, erythema, bruising. Mild pain with flexion Lungs - Good diaphragmatic excursion. Lungs clear. Chest symmetrical. Normal breath sounds. Heart - RRR. No murmurs, clicks or gallops. No peripheral edema. . . IMPRESSION: ICD-9-CM ICD-10-CM 1. Pain in finger of left hand 729.5 M79.645 XR FINGER OR FINGERS MIN 2 VIEWS LEFT (STANDARD) REFER TO PHYSICAL THERAPY / REHAB CANCELED: REFER TO HAND SURGERY Plan PLAN: Ordered xray -- will do now -- will call with results Did referral to physical therapy -- patient can call for appointment Apply heat, OTC Ibuprofen 400mg as needed, take with food Make appointment to establish with PCP Author: aMrci Rodas PA-C 08/21/2019 08:32 documented in this encounter Plan of Treatment Date Type Specialty Care Team Description 08/21/2019 Ancillary Procedure Radiology Pain in finger of left hand Name Type Priority Associated Diagnoses Date/Time XR FINGER OR FINGERS Imaging Routine Pain in finger of left 08/21/2019 8: 46 AM EST MIN 2 VIEWS LEFT hand (STANDARD) Name Type Priority Associated Diagnoses Order Schedule XR FINGER OR FINGERS Imaging Routine Pain in finger of left Expected: 08/21, MIN 2 VIEWS LEFT hand Expires: 08/20/2020 (STANDARD) Name Type Priority Associated Diagnoses Order Schedule REFER TO PHYSICAL Referral Routine Pain in finger of left 99 Occurrences starting THERAPY / REHAB hand 08/21/2019 until 08/21/2020 Health Maintenance Due Date Last Done Comments PAP SMEAR 2011 INFLUENZA VACCINE (#1) 2019 DIABETES SCREENING 01/20/2020 01/19/2019, 12/13/2018, 11/20/2018, Additional history exists DEPRESSION SCREENING 08/21/2020 08/21/2019 HPV IMMUNIZATION SERIES Aged Out No longer eligible based on patient's age to complete this topic MENINGOCOCCAL VACCINE IMM Aged Out No longer eligible based on patient's age to complete this topic PNEUMOCOCCAL 0-64 YRS Aged Out No longer eligible based on patient's age to complete this topic documented as of this encounter Results Not on filedocumented in this encounter Visit Diagnoses Diagnosis Pain in finger of left hand - Primary Pain in limb documented in this encounter Insurance Payer Benefit Plan / Subscriber ID Effective Dates Phone Address Type Group [employer] xxxxxxxxxxxx 2018-Present [employer] Guarantor Name Account Type Relation to Date of Phone Billing Address Patient Stephanie Munoz Personal/Family 1990 [address] (Home) [place], [place] [phone] (Work) documented as of this encounter
[2019-08-26 10:26] VITALS: BP 135/88
--- NOTE | 2019-08-26 10:40 | UC ---
Back Pain HPI - HPI Summary HPI Summary: Patient is 29 year old female , who presents today to the urgent care with low back/ left hip after a fall yesterday . She reports that she fell on ground slipped on snow yesterday about 1730- reports pain in the left low back, left posterolateral hip and left mid thigh. Denies any radiation down the leg below the knee, no numbness or tingling, no incontinence.. She is not taking any medication for this. Limping due to pain and hurts to put weight on the left side. - History of Current Complaint Chief Complaint: UCBackPain Stated Complaint: LEG PAIN Time Seen by Provider: 08/26/19 10:19 Hx Obtained From: Patient Hx Last Menstrual Period: 07/27/19 ?: No Pain Intensity: 7 - Allergies/Home Medications Allergies/Adverse Reactions: Allergies Allergy/AdvReac Type Severity Reaction Status Date / Time lithium Allergy Rash Verified 05/22/19 15:07 methylphenidate Allergy Shakes Verified 05/22/19 15:07 Home Medications: Home Medications NK [No Home Medications Reported] 08/26/19 [History Confirmed 08/26/19] PMH/Surg Hx/FS Hx/Imm Hx - Additional Past Medical History Additional PMH: Past Medical History : Prediabetic, kidney stones, DVT/PE during Past Surgical History: Right ankle surgery and D&C Family History : non contributory Social History : No alcohol, non smoker, no drug use. Previously Healthy: Yes Other History Of: Negative For: Anticoagulant Therapy - Surgical History Surgical History: Yes Surgery Procedure, Year, and Place: R ankle surgery, D&C - Family History Known Family History: Positive: Hypertension Negative: Cardiac Disease, Diabetes - Social History Alcohol Use: None Substance Use Type: None Smoking Status (MU): Never Smoked Tobacco Have You Smoked in the Last Year: No - Immunization History Most Recent Influenza Vaccination: has not had Review of Systems All Other Systems Reviewed And Are Negative: Yes Constitutional: Positive: Negative Skin: Positive: Negative Eyes: Positive: Negative ENT: Positive: Negative Respiratory: Positive: Negative Cardiovascular: Positive: Negative Gastrointestinal: Positive: Negative Genitourinary: Positive: Negative Motor: Positive: Negative Neurovascular: Positive: Negative Musculoskeletal: Positive: Arthralgia - Low back, left hip and left thigh, Decreased ROM - Painful, Myalgia - left thigh Neurological: Positive: Negative Psychological: Positive: Negative Is Patient Immunocompromised?: No Physical Exam - Summary Physical Exam Summary: Vital Signs Reviewed: Yes A+Ox3, no distress Eyes: Conjunctiva Clear ENT: Hearing grossly normal neck: supple Respiratory: Positive: No respiratory distress, No accessory muscle use Cardiovascular: skin color reflect adequate perfusion Musculoskeletal Exam: DESIR x 4 without difficulty Neurological: Positive: Alert, ambulatory without difficulty Psychological: Positive: Normal Response To Family Skin: Positive: no rash, no ecchymosis Hip/ Spine: Musculo: Walks with a slight limp Spine: No loss of the normal lumbar lordosis or step-off. There is midline and paraspinal tenderness noted on the left side in the lumbar area. No instability. Strength: 5/5 ROM: Slightly limited and painful range of motion Special Tests: Straight leg raise is negative bilaterally. Hip: Insp/Palp: Normal to inspection and palpation. Strength: 5/5 bilaterally. Normal muscle tone bilaterally. ROM: full ROM - internal and external rotation- slightly painful with reproduction of pain on the lateral aspect, positive OLGA test for reproduction of posterolateral hip pain and Neg FADIR test Thighs: There is tenderness to palpation in the mid thigh point deep palpation Skin: No scars, rashes, lesions or ecchymosis. Neuro: Sensation intact to light touch. Motor and sensory intact. Reflexes: Left DTR's are intact. Right DTR's are intact. Toes downgoing. Coordination normal. Distal pulses intact. Triage Information Reviewed: Yes Vital Signs: Initial Vital Signs Temp 97.6 F 08/26/19 10:17 Pulse 86 08/26/19 10:17 Resp 18 08/26/19 10:17 BP 135/88 08/26/19 10:17 Pulse Ox 100 08/26/19 10:17 Vital Signs Reviewed: Yes Diagnostics - Radiology No standard instances Radiology Interpretation Completed By: Radiologist - X-rays of the lumbar spine : MILD DEGENERATIVE DISC DISEASE. X-rays of the left hip and AP pelvis: NO RADIOGRAPHIC EVIDENCE FOR HIP FRACTURE. X-RAYS MAY BE NEGATIVE WITH NONDISPLACED HIP FRACTURE, IF THERE IS PERSISTENT CLINICAL CONCERN, RECOMMEND CONSIDERATION OF MRI. IN THE SETTING OF CONTRAINDICATION TO MRI OR LIMITATION IN EMERGENT ACCESS TO MRI, CT WOULD BE SUGGESTED. X-rays of the left femur: IMPRESSION: NO ACUTE OSSEOUS INJURY. IF SYMPTOMS PERSIST, RECOMMEND REPEAT IMAGING. Back Pain Course/Dx - Course Course Of Treatment: X-rays of the lumbar spine: MILD DEGENERATIVE DISC DISEASE. X-rays of the left hip and AP pelvis: NO RADIOGRAPHIC EVIDENCE FOR HIP FRACTURE. X-RAYS MAY BE NEGATIVE WITH NONDISPLACED HIP FRACTURE, IF THERE IS PERSISTENT CLINICAL CONCERN, RECOMMEND CONSIDERATION OF MRI. IN THE SETTING OF CONTRAINDICATION TO MRI OR LIMITATION IN EMERGENT ACCESS TO MRI, CT WOULD BE SUGGESTED. X-rays of the left femur: IMPRESSION: NO ACUTE OSSEOUS INJURY. IF SYMPTOMS PERSIST, RECOMMEND REPEAT IMAGING. Images and x-ray report reviewed and discussed with the patient today. Symptoms consistent with lumbar strain and contusion of the hip and the femur. We discussed the option of trial of muscle relaxant and pain control for naproxen but she doesn't want to try any muscle relaxant at this time and has ibuprofen at home. We discussed that she should take it easy, rest and follow with orthopedics. - Differential Dx/Diagnosis Provider Diagnosis: Lumbar strain, Arthritis, lumbar spine, Contusion of left hip and thigh Discharge ED - Sign-Out/Discharge Documenting (check all that apply): Patient Departure All imaging exams completed and their final reports reviewed: No Studies - Discharge Plan Condition: Stable Disposition: HOME Patient Education Materials: Low Back Strain (ED), Contusion in Adults (ED), Lower Back Exercises (ED) Referrals: No Primary Care Phys,NOPCP [Primary Care Provider] - Janell Avery MD [Medical Doctor] - 2 Days Additional Instructions: Pain control as needed with ibuprofen . Heat pack or ice-15 minutes at a time 3-4 times a day. 's day active and gentle range of motion exercises Follow up with orthopedics in 2-3 days Patients blood pressure slightly high in Urgent care today , plan follow up with PCP for better control Return to Urgent care / ER if symptoms get worse. - Billing Disposition and Condition Condition: STABLE Disposition: Home
== END 2019-08-26 12:50 | disposition home or self-care (01) ==
LOC: UCEAST 10:11
DX: S39.012A Strain of muscle, fascia and tendon of lower back, initial encounter (principal); S70.02XA Contusion of left hip, initial encounter; M46.86 Other specified inflammatory spondylopathies, lumbar region; Z86.718 Personal history of other venous thrombosis and embolism; Z91.09 Other allergy status, other than to drugs and biological substances; Z88.8 Allergy status to other drugs, medicaments and biological substances; Z86.711 Personal history of pulmonary embolism; W00.0XXA Fall on same level due to ice and snow, initial encounter; Y92.9 Unspecified place or not applicable
CPT/HCPCS: 72100; 84702; 99201; G0463